=== PATIENT | female | born 1950 | race Caucasian/White ===

== ENCOUNTER 2016-10-01 18:44 | Emergency (ER) | payer MEDICARE, OTHER ==
[~2016-10-01] VITALS: Ht 152.4 cm; Wt 54.6 kg
[2016-10-01 18:52] VITALS: Ht 152.4 cm; Wt 54.6 kg
[2016-10-01] MEDS ORDERED: LEVO750T25 PO (19:42)
[2016-10-01] MEDS ORDERED: ALBU8.5H3 INH (19:43)
--- NOTE | 2016-10-01 19:46 | ERD ---
ER Documentation Chief Complaint Date/Time DATE: 10/01/16 TIME: 19:44 Chief Complaint Cough x2 weeks with lung pain HPI This is a 66-year-old female presents to the ER with a dry cough for the last 15 days. Patient states that cough has been constant, worse at night. She has been trying to take [id number] cough medicine however it does not work. Patient does admit to some chest pain only when she is coughing. Chest pain has been going on for the last week, whenever she coughs. She denies any exertional chest pain. She denies any fevers or chills. She denies any shortness of breath. ROS 12 point review of systems was done, all negative except per HPI.. Medications Home Meds Active Scripts Albuterol Sulfate* (Proair HFA*) 8.5 Gm Hfa.aer.ad, 2 PUFF INH Q4, #1 INHALER Prov:BUCK MÁRQUEZ 10/01/16 Levofloxacin* (Levaquin*) 750 Mg Tablet, 750 MG PO DAILY for 5 Days, TAB Prov:BUCK MÁRQUEZ 10/01/16 Allergies Allergies: Coded Allergies: No Known Allergy (Unverified , 07/13/14) PMhx/Soc Medical and Surgical Hx: pt denies Medical Hx History of Surgery: No Anesthesia Reaction: No Hx Neurological Disorder: No Hx Respiratory Disorders: No Hx Cardiac Disorders: Yes (Htn) Hx Psychiatric Problems: No Hx Miscellaneous Medical Probl: Yes (DM, Shingles) Hx Alcohol Use: No Hx Substance Use: No Hx Tobacco Use: No Smoking Status: Never smoker Physical Exam Vitals Vital Signs Date Time Temp Pulse Resp B/P Pulse Ox O2 Delivery O2 Flow Rate FiO2 10/01/16 18:52 99.5 96 18 188/81 98 Physical Exam GENERAL: The patient is well-developed, well-nourished, in no acute distress. NECK: Cervical spine is non tender with no step off. Supple, no nuchal rigidity HEENT: Atraumatic. Pupils equal, round and reactive to light. Extraocular muscles are grossly intact. Conjunctivae pink, no discharge. Bilateral tympanic membranes are clear with no evidence of erythema, effusion or dulling of the light reflex. Tonsilar erythema with no exudates or uvular deviation. Clear rhinorrhea. RESPIRATORY: Clear to auscultation bilaterally. There are no rales, wheezes or rhonchi. HEART: Regular rate and rhythm. No murmurs, clicks, rubs or gallops. EXTREMITIES: No clubbing or cyanosis. Full range of motion. Grossly neurovascularly intact. NEUROLOGIC: Alert and oriented. Cranial nerves II through XII are intact. SKIN: There is no rash. The skin is warm and dry. Procedures/MDM EKG was taken 92bpm no st elevation no t wave inversion. Differential diagnosis includes but is not limited to; Viral URI, allergic rhinitis, bronchitis, pertussis,pneumonia. Patient cough has been going on for the last 15 days, at this time patient will be treated for possible bacterial bronchitis. clinical suspicion for pneumonia is low as patient appears well, is not hypoxic or in any respiratory distress. Additionally, patients physical examination is benign. Patient is also afebrile and extremely well-appearing. Plan was discussed with patient they understand and agree. Patient needs to follow up with PCP in 1-2 days or return to ER sooner if symptoms worsen. Departure Diagnosis: Primary Impression: Bronchitis Condition: Stable Patient Instructions: What Is Bronchitis? Additional Instructions: Llame al doctor MAMATTI y carolina jassi MONY PARA DENTRO DE 1-2 GUILLEN.Dgale a la secretaria que nosotros le instruimos hacer esta mony.Avise o llame si reynolds condicin se empeora antes de la mony. Regresa aqui si peor o no mejor. BUCK MÁRQUEZ Oct 01, 2016 19:46
[2016-10-01] MEDS ORDERED: ACETAMINOPHEN 500 MG TAB PO STA (20:01)
== END 2016-10-01 20:13 | disposition home or self-care (01) ==
LOC: FTE 18:44
DX: J20.9 Acute bronchitis, unspecified (principal); I10 Essential (primary) hypertension; E11.9 Type 2 diabetes mellitus without complications; R07.9 Chest pain, unspecified
CPT/HCPCS: 93005; 99284

== ENCOUNTER 2016-11-23 19:11 | Emergency (ER) | payer MEDICARE, OTHER ==
[~2016-11-23] VITALS: Ht 152.4 cm; Wt 54.5 kg
[~2016-11-23 19:11] MED LIST: ALBU8.5H3 INH; LEVO750T25 PO
[2016-11-23 19:18] VITALS: Ht 152.4 cm; Wt 54.5 kg
[2016-11-23] MEDS ORDERED: ONDANSETRON 4 MG INJ IV STA (19:37)
[2016-11-23] MEDS ORDERED: morphine 2 MG INJ IV STA (19:37)
[2016-11-23] MEDS ORDERED: SOD CHLORIDE 0.9% 1,000 ML IV STA (19:37)
[2016-11-23] MEDS ORDERED: LABETALOL HCL 20MG INJ IV ONE (20:00)
[2016-11-23 20:34] LABS: ADD SCAN DIFF NO
[2016-11-23 20:36] LABS: ADD UMIC YES; URINE BILIRUBIN (Dip) NEGATIVE (NEGATIVE); URINE BLOOD (Dip) NEGATIVE (NEGATIVE); URINE COLOR LT. YELLOW (YELLOW); URINE KETONES (Dip) NEGATIVE (NEGATIVE); URINE LEUKOCYTE ESTERASE (Dip) TRACE (NEGATIVE); URINE NITRITE (Dip) NEGATIVE (NEGATIVE); URINE TOTAL PROTEIN (Dip) NEGATIVE (NEGATIVE); URINE UROBILINOGEN (Dip) 0.2 E.U./dL (0.1-1.0)
[2016-11-23 20:36] LABS: BASOPHILS % 0.6 % (0.0-2.0); EOSINOPHILS # 0.1 10^3/ul (0.0-0.5); HEMATOCRIT 43.7 % (37.0-47.0); HEMOGLOBIN 14.9 g/dl (12.0-16.0); LYMPHOCYTES # 3.9 10^3/ul (0.8-2.9); LYMPHOCYTES % 59.2 % (15.0-51.0); MEAN CORPUSCULAR HEMOGLOBIN 28.1 pg (29.0-33.0); MEAN CORPUSCULAR HGB CONC 34.1 g/dl (32.0-37.0); MEAN CORPUSCULAR VOLUME 82.3 fl (82.0-101.0); MEAN PLATELET VOLUME 12.1 fl (7.4-10.4); MONOCYTE # 0.4 10^3/ul (0.3-0.9); MONOCYTES % 6.4 % (0.0-11.0); NEUTROPHIL # 2.1 10^3/ul (1.6-7.5); NEUTROPHILS % 31.6 % (39.0-77.0); PLATELET COUNT 159 10^3/UL (140-415); RED BLOOD COUNT 5.31 10^6/ul (4.20-5.40); RED CELL DISTRIBUTION WIDTH 12.8 % (11.5-14.5); WHITE BLOOD COUNT 6.6 10^3/ul (4.8-10.8)
[2016-11-23 20:45] LABS: URINE RBCS NONE SEEN /HPF (0)
[2016-11-23 20:51] LABS: ALBUMIN 5.2 g/dl (3.3-4.9); CHLORIDE 101 mmol/L (97-110); POTASSIUM 3.5 mmol/L (3.5-5.1); SODIUM 139 mmol/L (135-144)
[2016-11-23 20:54] LABS: ALANINE AMINOTRANSFERASE 52 IU/L (13-69); ALKALINE PHOSPHATASE 149 IU/L (42-121); ANION GAP 15 (8-16); ASPARTATE AMINO TRANSFERASE 31 IU/L (15-46); BILIRUBIN,INDIRECT 0.1 mg/dl (0-1.1); BILIRUBIN,TOTAL 0.1 mg/dl (0.2-1.3); BLOOD UREA NITROGEN 13 mg/dl (7-20); CALCIUM 10.3 mg/dl (8.4-10.2); CARBON DIOXIDE 27 mmol/L (21-31); CREATININE 0.54 mg/dl (0.44-1.00); GLUCOSE 249 mg/dl (70-220); TOTAL PROTEIN 9.2 g/dl (6.1-8.1)
[2016-11-23] MEDS ORDERED: IOHEXOL 300MG/ML 150 ML BTL ONE (21:11)
[2016-11-23] MEDS ORDERED: SOD CHLORIDE 0.9% 100 ML ONE (21:11)
[2016-11-23 21:13] LABS: TROPONIN-I < 0.012 ng/ml (0.00-0.12)
--- NOTE | 2016-11-23 21:49 | ERD ---
ER Documentation Chief Complaint Date/Time DATE: 11/23/16 TIME: 21:41 Chief Complaint llq abd pain radiating to the back, constipated, denies n/v/d and dysuria HPI 66-year-old female presents with left lower quadrant as well as left-sided abdominal pain as well as can diffuse intermittent abdominal pain after 4 days of constipation. Pain is been increasing across the 4 days and now she believes it is bad enough that she needs to be evaluated. She has no nausea vomiting diarrhea. No dysuria. She is noted to be extremely hypertensive on triage and on repeat vitals. She states that she is on 3 different blood pressure medications that she does not take because she was feeling well. She does take Tylenol sometimes ROS All systems reviewed and are negative except as per history of present illness. Medications Home Meds Active Scripts Ondansetron (Ondansetron Odt) 4 Mg Tab.rapdis, 4 MG PO Q6H Y for NAUSEA AND/OR VOMITING, #10 TAB Prov:SHANTANUKALPANA DO 11/23/16 Naproxen* (Naproxen*) 500 Mg Tablet, 500 MG PO BID Y for PAIN, #20 TAB Prov:SHANTANUKALPANA 11/23/16 Magnesium Citrate* (Magnesium Citrate*) 296 Ml Solution, 296 ML PO ONCE, #1 BOTTLE Prov:SHANTANUKALPANA 11/23/16 Polyethylene Glycol* (Miralax*) 17 Gm Powd.pack, 17 GM PO DAILY, #7 Prov:SHANTANUKALPANA 11/23/16 Albuterol Sulfate* (Proair HFA*) 8.5 Gm Hfa.aer.ad, 2 PUFF INH Q4, #1 INHALER Prov:BUCK MÁRQUEZ C 10/01/16 Levofloxacin* (Levaquin*) 750 Mg Tablet, 750 MG PO DAILY for 5 Days, TAB Prov:YULISA,BUCK C 10/01/16 Allergies Allergies: Coded Allergies: No Known Allergy (Unverified , 07/13/14) PMhx/Soc History of Surgery: No Anesthesia Reaction: No Hx Neurological Disorder: No Hx Respiratory Disorders: No Hx Cardiac Disorders: Yes (Htn) Hx Psychiatric Problems: No Hx Miscellaneous Medical Probl: Yes (DM, Shingles) Hx Alcohol Use: No Hx Substance Use: No Hx Tobacco Use: No Smoking Status: Never smoker Physical Exam Vitals Vital Signs Date Time Temp Pulse Resp B/P Pulse Ox O2 Delivery O2 Flow Rate FiO2 11/23/16 19:18 97.9 77 20 223/101 96 Physical Exam Const: [] Mild distress, appears uncomfortable Head: Atraumatic Eyes: Normal Conjunctiva, EOMI, PRL ENT: Normal External Ears, Nose and Mouth. Neck: Full range of motion..~ No meningismus. Resp: Clear to auscultation bilaterally Cardio: Regular rate and rhythm, no murmurs Abd: Soft, mild to moderate diffuse tenderness with maximal tenderness in left mid abdomen, no guarding or rebound, non distended. Normal bowel sounds Skin: No petechiae or rashes Back: No midline or flank tenderness Ext: No cyanosis, or edema Neur: Awake and alert and oriented 3, cranial nerves II through XII intact, no focal deficits Psych: Normal Mood and Affect Result Diagram: 11/23/16201411/23/162014 Results 24 hrs Laboratory Tests Test 11/23/16 20:00 11/23/16 20:15 Urine Color LT. YELLOW Urine Clarity CLEAR Urine pH 7.0 Urine Specific Dwarf 1.010 Urine Ketones NEGATIVE Urine Nitrite NEGATIVE Urine Bilirubin NEGATIVE Urine Urobilinogen 0.2 E.U./dL Urine Leukocyte Esterase TRACE Urine Microscopic RBC NONE SEEN/HPF Urine Microscopic WBC 2-5/HPF Urine Epithelial Cells OCCASIONAL Urine Hemoglobin NEGATIVE Urine Glucose 0.1%% Urine Total Protein NEGATIVE White Blood Count 6.610^3/ul Red Blood Count 5.3110^6/ul Hemoglobin 14.9g/dl Hematocrit 43.7% Mean Corpuscular Volume 82.3fl Mean Corpuscular Hemoglobin 28.1pg Mean Corpuscular Hemoglobin Concent 34.1g/dl Red Cell Distribution Width 12.8% Platelet Count 91964^3/UL Mean Platelet Volume 12.1fl Neutrophils % 31.6% Lymphocytes % 59.2% Monocytes % 6.4% Eosinophils % 2.0% Basophils % 0.6% Nucleated Red Blood Cells % 0.0/100WBC Neutrophils # 2.110^3/ul Lymphocytes # 3.910^3/ul Monocytes # 0.410^3/ul Eosinophils # 0.110^3/ul Basophils # 0.010^3/ul Nucleated Red Blood Cells # 0.010^3/ul Sodium Level 139mmol/L Potassium Level 3.5mmol/L Chloride Level 101mmol/L Carbon Dioxide Level 27mmol/L Anion Gap 15 Blood Urea Nitrogen 13mg/dl Creatinine 0.54mg/dl Glucose Level 249mg/dl Calcium Level 10.3mg/dl Total Bilirubin 0.1mg/dl Direct Bilirubin 0.00mg/dl Indirect Bilirubin 0.1mg/dl Aspartate Amino Transf (AST/SGOT) 31IU/L Alanine Aminotransferase (ALT/SGPT) 52IU/L Alkaline Phosphatase 149IU/L Troponin I < 0.012ng/ml Total Protein 9.2g/dl Albumin 5.2g/dl Globulin 4.00g/dl Albumin/Globulin Ratio 1.30 Lipase 163U/L Current Medications Medications (Trade) Dose Ordered Sig/Isac Route PRN Reason Start Time Stop Time Status Last Admin Dose Admin Sodium Chloride (NS) 1,000 ml @ 1,000 mls/hr Q1H STAT IV 11/23/16 19:37 11/23/16 20:36 DC 11/23/16 20:27 Morphine Sulfate (morphine) 2 mg ONCE STAT IV 11/23/16 19:37 11/23/16 19:39 DC 11/23/16 20:27 Ondansetron HCl (Zofran Inj) 4 mg ONCE STAT IV 11/23/16 19:37 11/23/16 19:39 DC 11/23/16 20:27 Labetalol HCl (Labetalol) 20 mg ONCE ONCE IV 11/23/16 20:00 11/23/16 20:01 DC 11/23/16 20:28 IV Flush 10 ml 10 ml STK-MED ONCE .ROUTE 11/23/16 21:11 11/23/16 21:12 DC 11/23/16 21:21 Sodium Chloride (NS) 100 ml @ ud STK-MED ONCE .ROUTE 11/23/16 21:11 11/23/16 21:12 DC 11/23/16 21:21 Iohexol (Omnipaque 300mg/ ml) 150 ml STK-MED ONCE .ROUTE 11/23/16 21:11 11/23/16 21:12 DC 11/23/16 21:21 Diclofenac Sodium (Dyloject) 37.5 mg ONCE STAT IV 11/23/16 22:07 11/23/16 22:10 DC Procedures/MDM Hypertensive urgency as well as acute abdominal pain secondary to constipation. Full workup was performed secondary to patient's very high blood pressure to rule out abdominal aortic aneurysm or other abdominal emergencies. Patient has no signs of cardiac ischemia with nonischemic EKG and negative troponin. There are fluid was administered to help with diabetic hyperglycemia as well as proper hydration to allow the laxatives of function properly. Fortunately patient has no signs of renal dysfunction yet. I did take time to explain the dangers of not taking blood pressure medication regardless of how she feels. Blood pressure is acutely lowered using labetalol IV. Patient has for 3 blood pressure medications at home and agrees to take them as directed from now on. EKG interpretation: Normal sinus rhythm rate of 72, normal axis, no ST or T- wave changes concerning for acute ischemia, normal intervals. Normal EKG pump station operator interpretation: Normal sinus rhythm without arrhythmia CT abdomen pelvis interpretation: Moderate stool retention throughout the ascending and transverse colon with mild stool retention in left colon. See no obstruction, no free air, no abnormal fat stranding, no fractures. Critical care time 38 minutes: This includes treatment of hypertensive urgency and patient noncompliant with multiple antihypertensives, use of vasoactive medication labetalol, multiple visits the patient's bedside reassess cardiothymic status, chart reviewed, lengthy discussion patient on dangers of keeping her blood pressure so high. This does not include any billable procedures Departure Diagnosis: Primary Impression: Hypertensive urgency Additional Impressions: Acute abdominal pain Constipation Hyperglycemia due to type 2 diabetes mellitus Condition: KALPANA Fernandez DO November 23, 2016 21:49
[2016-11-23] MEDS ORDERED: DICLOFENAC SODIUM 37.5 MG/ML VIAL IV STA (22:07)
[2016-11-23] MEDS ORDERED: MAGN296S40 PO (22:29)
[2016-11-23] MEDS ORDERED: POLY17PO6 PO (22:29)
[2016-11-23] MEDS ORDERED: ONDA4TAB14 PO (22:29)
[2016-11-23] MEDS ORDERED: NAPR-688 PO (22:29)
--- NOTE | 2016-11-23 22:48 | RADRPT ---
PROCEDURE: CT ABDOMEN/PELVIS WITH CONTRAST CLINICAL INDICATION: 66-year-old female with left lower quadrant pain. TECHNIQUE: The study was performed utilizing a [employer] [facility] 64-slice CT scanner. Direct axia l sections were obtained through the abdomen and pelvis with the use of 90 cc of Omnipaque-300 nonio ricky intravenous contrast material. Sagittal and coronal reformations were obtained. One or more of t he following dose reduction techniques were utilized: automated exposure control, adjustment of the mA and/or kV according to patient's size or use of iterative reconstruction technique. The images w ere reviewed on a PACS workstation. CTD/vol = 7.6 mGy; Total Exam DLP = 375 point a mGy-cm. COMPARISON: None. FINDINGS: there is trace bibasilar subsegmental atelectasis . There is no evidence for significant pleural ef fusion. The liver has a normal size and contour. There is diffuse decreased density throughout the liver consistent with fatty infiltration without focal areas of abnormal density or contrast enhanc ement. No intrahepatic nor extrahepatic biliary ductal dilatation is seen. Shallow clips are present within the gallbladder fossa from prior cholecystectomy The pancreas is without areas of abnormal a ttenuation or contrast enhancement. This spleen is identified and has a normal size without abnorma l density or contrast enhancement. The adrenal glands are unremarkable. The kidneys are functional b ilaterally. There is a right mid renal cyst measuring approximately 1.0 x 1.2 x 1.1 cm. No hydrouret eronephrosis nor nephroureterolithiasis is evident. The urinary bladder contains urine. There is mil d retained stool throughout the colon without gross bowel obstruction. There are several small diverticula within the sigmoid colon region without surrounding inflammatory changes. The appendix is diminutive and is without edema or surrounding inflammatory reaction. The uterus is retroflexed w ith punctate calcifications. There is no significant free fluid. The aortoiliac vessels are mildly calcified but without aneurysmal dilatation. The osseous structures are intact. IMPRESSION: 1. Diffuse fatty infiltration of the liver. 2. Status post cholecystectomy. 3. Right renal cyst. 4. Retained stool without obstruction. 5. No CT evidence for appendicitis. 6. Mild sigmoid diverticulosis. 7. Vascular calcifications. .Nick Hughes MD, MD Date Time Electronically viewed and signed by .Nick Hughes MD, on 11/23/2016 22:48 .M/
[2016-11-23] MEDS ORDERED: IBUP200C PO (22:54)
[2016-11-23] MEDS ORDERED: ACET-141 PO (22:54)
[2016-11-23 23:30] VITALS: BP 146/79; PULSE 58; RESP 16; TEMP 98.2
== END 2016-11-24 00:04 | disposition home or self-care (01) ==
LOC: E/R 19:11
DX: I16.0 Hypertensive urgency (principal); R10.84 Generalized abdominal pain; K59.00 Constipation, unspecified; E11.65 Type 2 diabetes mellitus with hyperglycemia; I10 Essential (primary) hypertension
CPT/HCPCS: 74177; 80053; 81001; 83690; 84484; 85025; 93005; J2270; J2405; J7030; Q9967; 36415; 96374; 96375

== ENCOUNTER 2016-11-28 00:05 | Emergency (ER) | payer MEDICARE, OTHER ==
[~2016-11-28] VITALS: Ht 152.4 cm; Wt 54.0 kg
[~2016-11-28 00:05] MED LIST changes: +ACET-141 PO; -ALBU8.5H3 INH; +IBUP200C PO; +MAGN296S40 PO; +NAPR-688 PO; +ONDA4TAB14 PO; +POLY17PO6 PO
[2016-11-28 00:39] VITALS: Ht 152.4 cm; Wt 54.0 kg
[2016-11-28 02:25] LABS: ADD SCAN DIFF NO
[2016-11-28 02:27] LABS: BASOPHILS % 0.3 % (0.0-2.0); EOSINOPHILS # 0.1 10^3/ul (0.0-0.5); EOSINOPHILS % 0.4 % (0.0-7.0); HEMATOCRIT 41.1 % (37.0-47.0); HEMOGLOBIN 13.9 g/dl (12.0-16.0); LYMPHOCYTES # 1.8 10^3/ul (0.8-2.9); LYMPHOCYTES % 15.1 % (15.0-51.0); MEAN CORPUSCULAR HEMOGLOBIN 27.9 pg (29.0-33.0); MEAN CORPUSCULAR HGB CONC 33.8 g/dl (32.0-37.0); MEAN CORPUSCULAR VOLUME 82.5 fl (82.0-101.0); MEAN PLATELET VOLUME 11.7 fl (7.4-10.4); MONOCYTE # 0.6 10^3/ul (0.3-0.9); MONOCYTES % 5.2 % (0.0-11.0); NEUTROPHIL # 9.2 10^3/ul (1.6-7.5); NEUTROPHILS % 78.7 % (39.0-77.0); PLATELET COUNT 143 10^3/UL (140-415); RED BLOOD COUNT 4.98 10^6/ul (4.20-5.40); RED CELL DISTRIBUTION WIDTH 12.9 % (11.5-14.5); WHITE BLOOD COUNT 11.7 10^3/ul (4.8-10.8)
[2016-11-28 02:38] LABS: ADD UMIC YES; URINE BILIRUBIN (Dip) NEGATIVE (NEGATIVE); URINE BLOOD (Dip) NEGATIVE (NEGATIVE); URINE COLOR LT. YELLOW (YELLOW); URINE KETONES (Dip) NEGATIVE (NEGATIVE); URINE LEUKOCYTE ESTERASE (Dip) TRACE (NEGATIVE); URINE NITRITE (Dip) NEGATIVE (NEGATIVE); URINE TOTAL PROTEIN (Dip) NEGATIVE (NEGATIVE); URINE UROBILINOGEN (Dip) 0.2 E.U./dL (0.1-1.0)
[2016-11-28] MEDS ORDERED: NITR-58 PO (02:42)
[2016-11-28 02:43] LABS: ALBUMIN/GLOBULIN RATIO 1.56; BILIRUBIN,INDIRECT 0.5 mg/dl (0-1.1); BILIRUBIN,TOTAL 0.5 mg/dl (0.2-1.3); CALCIUM 9.5 mg/dl (8.4-10.2); CREATININE 0.45 mg/dl (0.44-1.00); POTASSIUM 3.8 mmol/L (3.5-5.1); TOTAL PROTEIN 8.2 g/dl (6.1-8.1)
[2016-11-28 02:55] LABS: SQUAMOUS EPITHELIAL CELL,UR RARE; URINE RBCS NONE SEEN /HPF (0)
[2016-11-28] MEDS ORDERED: AMLO-218 PO (02:57)
[2016-11-28] MEDS ORDERED: SIMV40TA2 PO (02:57)
[2016-11-28] MEDS ORDERED: METF500T4 PO (02:57)
[2016-11-28] MEDS ORDERED: LISI40TA9 PO (02:57)
[2016-11-28] MEDS ORDERED: LINA5TAB PO (02:57)
--- NOTE | 2016-11-28 02:58 | RADRPT ---
PROCEDURE: XR Chest. CLINICAL INDICATION: Pain. TECHNIQUE: Single frontal chest x-ray. COMPARISON: None. FINDINGS: The heart is enlarged. There are atherosclerotic calcifications of the aortic knob.. There is no c ongestive heart failure.. No focal infiltrate is seen. There is no pleural effusion. There is no p neumothorax. The osseous structures are unremarkable. IMPRESSION: Cardiomegaly. Atherosclerotic vascular calcifications. No CHF or infiltrate. RPTAT: HMVK .Olu Lovell MD, Date Time Electronically viewed and signed by .Olu Lovell MD, on 11/28/2016 02:57 .K/
--- NOTE | 2016-11-28 03:14 | RADRPT ---
PROCEDURE: XR Abdomen. CLINICAL INDICATION: Abdominal pain. TECHNIQUE: 4 frontal views of the abdomen. COMPARISON: None. FINDINGS: There is moderate retained stool within the colon. Cholecystectomy clips are present within the rig ht upper abdomen. There is no bowel obstruction or free air. There is no organomegaly. There is n o abnormal calcification. The osseous structures are unremarkable. IMPRESSION: Moderate retained stool within the colon. Status post cholecystectomy. .Inocencio Julien MD, MD Date Time Electronically viewed and signed by .Inocencio Julien MD, on 11/28/2016 03:14 .T/
[2016-11-28] MEDS ORDERED: LACTULOSE 30ML CUP PO ONE (03:30)
[2016-11-28] MEDS ORDERED: MAGNESIUM CITRATE 300 ML BTL PO ONE (03:30)
--- NOTE | 2016-11-28 04:12 | ERD ---
ER Documentation Chief Complaint Date/Time DATE: 11/28/16 TIME: 04:10 Chief Complaint BILATERAL ABDOMINAL PAIN SINCE WEDNESDAY, NO BOWEL MOVEMENT, DENIES N/V HPI This 66-year-old female presents to the emergency room for evaluation of abdominal cramping and constipation that she has had for the past 4 days. The patient was seen in the emergency room earlier for the same and had a CAT scan which was negative and was discharged home with stool softeners. She states she is passing gas and came to the emergency room again for further evaluation ROS All systems reviewed and are negative except as per history of present illness. Medications Home Meds Active Scripts Nitrofurantoin Monohyd Macrocr* (Macrobid*) 100 Mg Capsr, 100 MG PO HS for 7 Days, CAP Prov:JUSTIN,KATHRINE 11/28/16 Ondansetron (Ondansetron Odt) 4 Mg Tab.rapdis, 4 MG PO Q6H Y for NAUSEA AND/OR VOMITING, #10 TAB Prov:KALPANA FOURNIER DO 11/23/16 Naproxen* (Naproxen*) 500 Mg Tablet, 500 MG PO BID Y for PAIN, #20 TAB Prov:SHANTANUKALPANAANTONIO BOATENG 11/23/16 Magnesium Citrate* (Magnesium Citrate*) 296 Ml Solution, 296 ML PO ONCE, #1 BOTTLE Prov:SHANTANUKALPANAANTONIO BOATENG 11/23/16 Polyethylene Glycol* (Miralax*) 17 Gm Powd.pack, 17 GM PO DAILY, #7 Prov:SHANTANUKALPANA 11/23/16 Levofloxacin* (Levaquin*) 750 Mg Tablet, 750 MG PO DAILY for 5 Days, TAB Prov:BUCK MÁRQUEZ 10/01/16 Reported Medications Linagliptin (TRADJENTA) 5 Mg Tablet, 5 MG PO, TAB 11/28/16 Amlodipine Besylate* (Norvasc*) 10 Mg Tablet, 10 MG PO DAILY, TAB 11/28/16 Simvastatin* (Zocor*) 40 Mg Tablet, 40 MG PO QHS, #30 TAB 11/28/16 Lisinopril* (Lisinopril*) 40 Mg Tablet, 40 MG PO DAILY, #30 TAB 11/28/16 Metformin Hcl* (Metformin Hcl*) 500 Mg Tablet, 500 MG PO WITH BREAKFAST DINNE, # 30 TAB 11/28/16 Acetaminophen* (Acetaminophen*) 500 MG Extra Strength Tablet, 500 MG PO Q4H Y for PAIN AND OR ELEVATED TEMP, TAB 11/23/16 Ibuprofen* (Ibuprofen*) 200 Mg Capsule, 400 MG PO Q6, CAP 11/23/16 Discontinued Scripts Albuterol Sulfate* (Proair HFA*) 8.5 Gm Hfa.aer.ad, 2 PUFF INH Q4, #1 INHALER Prov:BUCK MÁRQUEZ Zarina 10/01/16 Allergies Allergies: Coded Allergies: No Known Allergy (Unverified , 11/28/16) PMhx/Soc History of Surgery: No Anesthesia Reaction: No Hx Neurological Disorder: No Hx Respiratory Disorders: No Hx Cardiac Disorders: Yes (Htn) Hx Psychiatric Problems: No Hx Miscellaneous Medical Probl: Yes (DM, Shingles) Hx Alcohol Use: No Hx Substance Use: No Hx Tobacco Use: No Smoking Status: Unknown if ever smoked Physical Exam Vitals Vital Signs Date Time Temp Pulse Resp B/P Pulse Ox O2 Delivery O2 Flow Rate FiO2 11/28/16 00:39 97.7 82 18 209/98 96 Physical Exam INITIAL VITAL SIGNS: Reviewed by me GENERAL: The patient is well developed and appropriate for usual state of health in no apparent distress HEENT: Pupils equal, round, and reactive to light. EOMI. There is no scleral icterus. NECK: C-spine is soft and supple, there is no meningismus. There is no cervical lymphadenopathy. LUNGS: Clear to auscultation bilaterally. There are no rales, wheezes or rhonchi. HEART: Regular rate and rhythm, no murmurs, clicks, rubs or gallops. ABDOMEN: Soft, non-tender, non-distended. There are bowel sounds in all four quadrants. No rebound or guarding. EXTREMITIES: There is no peripheral cyanosis or edema. No focal swelling or erythema. NEUROLOGICAL: The patient moves all four extremities with 5/5 strength. Cranial nerves II - XII are intact. Normal gait. Alert and oriented SKIN: There is no apparent rash or petechiae. HEME/LYMPHATIC: There is no evidence of excessive bruising or lymphedema. PSYCHIATRIC: The patient does not appear anxious or depressed. Result Diagram: 11/28/1621211/28/16212 Results 24 hrs Laboratory Tests Test 11/28/16 02:13 White Blood Count 11.710^3/ul Red Blood Count 4.9810^6/ul Hemoglobin 13.9g/dl Hematocrit 41.1% Mean Corpuscular Volume 82.5fl Mean Corpuscular Hemoglobin 27.9pg Mean Corpuscular Hemoglobin Concent 33.8g/dl Red Cell Distribution Width 12.9% Platelet Count 83957^3/UL Mean Platelet Volume 11.7fl Neutrophils % 78.7% Lymphocytes % 15.1% Monocytes % 5.2% Eosinophils % 0.4% Basophils % 0.3% Nucleated Red Blood Cells % 0.0/100WBC Neutrophils # 9.210^3/ul Lymphocytes # 1.810^3/ul Monocytes # 0.610^3/ul Eosinophils # 0.110^3/ul Basophils # 0.010^3/ul Nucleated Red Blood Cells # 0.010^3/ul Urine Color LT. YELLOW Urine Clarity CLEAR Urine pH 7.5 Urine Specific [place] <=1.005 Urine Ketones NEGATIVE Urine Nitrite NEGATIVE Urine Bilirubin NEGATIVE Urine Urobilinogen 0.2 E.U./dL Urine Leukocyte Esterase TRACE Urine Microscopic RBC NONE SEEN/HPF Urine Microscopic WBC 0-2/HPF Urine Squamous Epithelial Cells RARE Urine Hemoglobin NEGATIVE Urine Glucose 0.1%% Urine Total Protein NEGATIVE Sodium Level 141mmol/L Potassium Level 3.8mmol/L Chloride Level 102mmol/L Carbon Dioxide Level 27mmol/L Anion Gap 16 Blood Urea Nitrogen 9mg/dl Creatinine 0.45mg/dl Glucose Level 210mg/dl Calcium Level 9.5mg/dl Total Bilirubin 0.5mg/dl Direct Bilirubin 0.00mg/dl Indirect Bilirubin 0.5mg/dl Aspartate Amino Transf (AST/SGOT) 42IU/L Alanine Aminotransferase (ALT/SGPT) 56IU/L Alkaline Phosphatase 107IU/L Total Protein 8.2g/dl Albumin 5.0g/dl Globulin 3.20g/dl Albumin/Globulin Ratio 1.56 Lipase 41U/L Current Medications Medications (Trade) Dose Ordered Sig/Isac Route PRN Reason Start Time Stop Time Status Last Admin Dose Admin Magnesium Citrate (Citroma) 300 ml ONCE ONCE PO 11/28/16 03:30 11/28/16 03:31 DC 11/28/16 03:43 Lactulose (Enulose) 20 gm ONCE ONCE PO 11/28/16 03:30 11/28/16 03:31 DC 11/28/16 03:43 Procedures/MDM Chest X-ray 1V Interpreted by me: Soft Tissue: No acute abnormalities Bones: No acute abnormalities Mediastinum/Cardiac Silhouette/Lungs: [No acute abnormalities] X-ray Abdomen 2V Interpreted by me: Free Air: [None] Bowel Gas: [Nonspecific] Soft Tissue: Moderate constipation This 66-year-old female presents to the emergency room for evaluation of constipation. She was given stool softeners and was discharged earlier after CT did not reveal any obstruction. I repeated an x-ray which does not show any obstruction in the emergency room. She was given magnesium citrate and lactulose and the patient did have a bowel movement. She is in no acute distress at this time will be discharged home with instructions to continue her stool softeners. Departure Diagnosis: Primary Impression: Constipation Condition: Stable Patient Instructions: Understanding Urinary Tract Infections (UTIs) Referrals: LILY DUPREE MD (PCP) VIVI HAYWARD DO Nov 28, 2016 04:12
[2016-11-28 04:20] VITALS: BP 175/86; PULSE 66; RESP 16
== END 2016-11-28 04:22 | disposition home or self-care (01) ==
LOC: E/R 00:05
DX: K59.00 Constipation, unspecified (principal); E11.9 Type 2 diabetes mellitus without complications; I10 Essential (primary) hypertension; Z79.84 Long term (current) use of oral hypoglycemic drugs
CPT/HCPCS: 36415; 71010; 74010; 80053; 81001; 83690; 85025

== ENCOUNTER 2018-02-27 21:28 | Emergency (ER) | END 2018-02-28 00:34 | disposition home or self-care (01) ==

== ENCOUNTER 2018-03-27 11:17 | Emergency (ER) | END 2018-03-27 14:57 | disposition home or self-care (01) ==